=== PATIENT | female | born 1950 | race African-American/Black ===

== ENCOUNTER → 2017-04-09 | Outpatient (CLI) | payer OTHER ==
[~2017-04-09] MED LIST: ASPI-482 PO; ATOR40TA59 PO; BENA40TA2 PO; DIPH-121 PO; DULO60CA6 PO; GABA600T2 PO; HYDR-2762 PO; HYDR25TA9 PO; IBUP200T58 PO; METF-620 PO; MULT-460 PO; NPH,100V5 SQ; ROPI0.5T PO; VERA240C2 PO
== END | disposition home or self-care (01) ==
LOC: SURGPAT 13:36
PROVIDERS: ATTEND Neurological Surgery
DX: M48.02 Spinal stenosis, cervical region (principal)
CPT/HCPCS: 87641